=== PATIENT | female | born 1990 | race African-American/Black ===

== ENCOUNTER 2019-11-24 15:03 | Emergency (ER) | payer SELFPAY ==
--- NOTE | 2019-11-24 17:51 | ED ---
Lower Extremity - HPI Summary HPI Summary: Patient presents for 2 week follow-up and suture removal status post right ankle surgery 11/10/19 in [facility]. Patient recently moved here , unable to follow up with original surgeon. Patient states no one has returned her calls from local orthopedic offices. Denies new trauma, worsening of pain, any new symptoms. - History of Current Complaint Chief Complaint: EDExtremityLower Stated Complaint: NEEDS STITCHES OUT FROM SURGERY PER PT Time Seen by Provider: 11/24/19 16:43 Hx Obtained From: Patient, Family/[employer] Onset of Pain: Days Severity Initially: Moderate Severity Currently: Moderate Pain Intensity: 5 Pain Scale Used: 0-10 Numeric Timing: Constant Location: Is Discrete @ Character Of Pain: Aching, Throbbing Associated Signs And Symptoms: Positive: Negative Aggravating Factor(s): Ambulation Alleviating Factor(s): Rest - Allergies/Home Medications Allergies/Adverse Reactions: Allergies Allergy/AdvReac Type Severity Reaction Status Date / Time No Known Allergies Allergy Verified 11/24/19 15:17 Home Medications: Home Medications Enalapril TAB* [Vasotec TAB*] 10 mg PO DAILY 11/24/19 [History Confirmed ] Folic Acid TAB* [Folvite TAB*] 1 tab PO DAILY 11/24/19 [History Confirmed ] HydroxyUREA CAP* [Hydrea CAP*] 1 tab PO DAILY 11/24/19 [History Confirmed ] PMH/Surg Hx/FS Hx/Imm Hx Endocrine/Hematology History: Denies: Hx Anticoagulant Therapy Cardiovascular History: Denies: Hx Pacemaker/ICD History: Denies: Hx Dialysis Sensory History: Denies: Hx Eye Prosthesis Opthamlomology History: Denies: Hx Legally Blind EENT History: Denies: Hx Deafness Neurological History: Denies: Hx CVA Infectious Disease History: No Infectious Disease History: Denies: Traveled Outside the [place] in Last 30 Days - Family History Known Family History: Positive: Non-Contributory - Social History Alcohol Use: Rare Substance Use Type: Reports: None Smoking Status (MU): Never Smoked Tobacco Review of Systems Constitutional: Negative Eyes: Negative ENT: Negative Cardiovascular: Negative Respiratory: Negative Gastrointestinal: Negative Genitourinary: Negative Musculoskeletal: Other Skin: Negative Neurological: Negative Psychological: Normal All Other Systems Reviewed And Are Negative: Yes Physical Exam - Summary Physical Exam Summary: Patient has splint on right ankle. PMS intact distal to splint.. Triage Information Reviewed: Yes Vital Signs On Initial Exam: Initial Vitals Temp Pulse Resp BP Pulse Ox 98.9 F 127 19 158/93 99 11/24/19 15:13 11/24/19 15:13 11/24/19 15:13 11/24/19 15:13 11/24/19 15:13 Vital Signs Reviewed: Yes Appearance: Positive: Well-Appearing Skin: Positive: Warm Head/Face: Positive: Normal Head/Face Inspection Eyes: Positive: Normal Neck: Positive: Supple Respiratory/Lung Sounds: Positive: Clear to Auscultation Cardiovascular: Positive: Normal Abdomen Description: Positive: Nontender Musculoskeletal: Positive: Normal Neurological: Positive: Normal Psychiatric: Positive: Normal AVPU Assessment: Alert - [place] Coma Scale Best Eye Response: 4 - Spontaneous Best Motor Response: 6 - Obeys Commands Best Verbal Response: 5 - Oriented Coma Scale Total: 15 Procedures - Sedation Patient Received Moderate/Deep Sedation with Procedure: No Diagnostics - Vital Signs Vital Signs Temp Pulse Resp BP Pulse Ox 11/24/19 15:13 98.9 F 127 19 158/93 99 - Laboratory Lab Statement: Any lab studies that have been ordered have been reviewed, and results considered in the medical decision making process. Lower Extremity Course/Dx - Course Course Of Treatment: Patient presents for 2 week follow-up and suture removal status post right ankle surgery 11/10/19 in [facility]. Patient recently moved here, unable to follow up with original surgeon. Patient states no one has returned her calls from local orthopedic offices. Denies new trauma , worsening of pain, any new symptoms. Vital signs within normal limits discussed patient with orthopedics Dr. Forbes who recommended patient call tomorrow morning to arrange appointment for follow-up evaluation and suture removal - Diagnoses Provider Diagnoses: Status post orthopedic surgery, follow-up exam Discharge ED - Sign-Out/Discharge Documenting (check all that apply): Patient Departure - Discharge Plan Condition: Stable Disposition: HOME Patient Education Materials: Ankle Fracture (ED) Referrals: No Primary Care Phys,NOPCP [Primary Care Provider] - Keith Forbes MD [Medical Doctor] - Additional Instructions: Call the clinic of orthopedics Dr. Forbes tomorrow morning to arrange for appointment for follow-up of ankle surgery. - Billing Disposition and Condition Condition: STABLE Disposition: Home - Attestation Statements Provider Attestation: I was available for consultation for this patient. I did not evaluate the patient, or participate in any medical decision making or disposition decisions unless I am specifically named in the chart as having consulted on the patient. If I have consulted on the patient, please see my own ED note on the patient encounter. Marily Fitzpatrick MD
[2019-11-24 18:00] VITALS: BP 122/81
== END 2019-11-24 17:59 | disposition home or self-care (01) ==
LOC: ED 15:03
DX: Z48.02 Encounter for removal of sutures (principal)
CPT/HCPCS: 99282

== ENCOUNTER 2020-10-11 06:57 | Inpatient (IN) ==
[~2020-10-11 06:57] MED LIST: Buffered Lidocaine 1% SYRIN 1 ml INTRADERM ONE; EPHEDrine (Pressors) 50 MG/ML VIAL ONE; Lactated Ringers 1000 ml BAG 1,000 ML IV SCH; Morphine PF AMP (0.5MG/ML) 5 MG/10 ML AMP ONE; Oxytocin 10 UNITS/ML 1 ML VIAL ONE; Phenylephrine 40 mcg/mL 10mL (400mcg) SYRINGE ONE; Sodium Citrate/Citric Acid LIQ 15 ML UDC PO ONE; Sterile Water for Inj 10 ML ONE
[2020-10-11] MEDS ORDERED: ceFOXitin 2 GM IVPREMIX 2 GM/50 ML BAG ONE (07:56)
[2020-10-11] MEDS ORDERED: Tranexamic Acid 1 GM/100ML BAG 0 MG/0 ML BAG IV ONE (09:03)
[2020-10-11] MEDS ORDERED: Midazolam 2 mg/2 ml VIAL 1 mg/ml 2 ml VIAL (2 mg) ONE (09:15)
[2020-10-11] MEDS ORDERED: fentaNYL 100 mcg/2 ml 50 MCG/ML VIAL ONE ×2 (09:17→09:34)
[2020-10-11] MEDS ORDERED: Ondansetron 4 mg VIAL 2 MG/ML 2 ml VIAL IV PRN (09:53)
[2020-10-11] MEDS ORDERED: Acetaminophen IV 1 GM/100ML 1,000 MG/100 ML VIAL IVPB PRN (09:53)
[2020-10-11] MEDS ORDERED: Naloxone 0.4 mg VIAL 0.4 mg/ml 1 ml VIAL IV PRN ×2 (09:53)
[2020-10-11] MEDS ORDERED: Bupivacaine 0.5% SDV PF 30ML VIAL ONE (09:55)
[2020-10-11] MEDS ORDERED: Witch Hazel PAD JAR TOPICAL PRN (10:17)
[2020-10-11] MEDS ORDERED: Lactated Ringers 1000 ml BAG 1,000 ML IV SCH (11:00)
[2020-10-11 11:39] LABS: Urine Benzodiazepine Screen None Detected (None Detect); Urine Opiates Screen None Detected (None Detect)
[2020-10-11] MEDS ORDERED: Nalbuphine 10 MG/ML 1 ML VIAL IV PRN (12:58)
[2020-10-11] MEDS ORDERED: diPHENhydraMINE IV 50 MG/ML 1 ml VIAL (BENADRYL) IV PRN (12:59)
[2020-10-12 05:45] LABS: Hematocrit 25 % (35-47); Hemoglobin 8.6 g/dL (12.0-16.0); Mean Corpuscular HGB Conc 34 g/dL (31-36); Mean Corpuscular Hemoglobin 23 pg (27-31); Mean Corpuscular Volume 68 fL (80-97); Platelet Count 158 10^3/uL (150-450); Red Blood Count 3.72 10^6 /uL (3.70-4.87); Red Cell Distribution Width 25 % (10-15); White Blood Count 10.8 10^3/uL (3.5-10.8)
[2020-10-12 06:12] LABS: ABS Basophils 0.1 10^3/ul (0-0.2); ABS Eosinophils 0.1 10^3/ul (0-0.6); ABS Lymphocytes 3.5 10^3/ul (1.0-4.8); ABS Monocytes 0.4 10^3/ul (0-0.8); ABS Neutrophils 6.7 10^3/ul (1.5-7.7); Eosinophil % 0.9 %; Lymphocyte % 32.5 %; Nucleated Red Blood Cells % 0.2
[2020-10-12 06:15] LABS: Microcytosis 2+; Polychromasia 1+
[2020-10-12] MEDS ORDERED: Oxytocin in LR 20 UNITS/1,000 ML BAG IVPB ONE (06:37)
[2020-10-13 07:57] VITALS: BP 139/66
== END 2020-10-13 12:17 | disposition home or self-care (01) | DRG 540 ==
LOC: MCHOB 06:57
PROVIDERS: ADMIT Obstetrics & Gynecology; ATTEND Obstetrics & Gynecology